=== PATIENT | male | born 1975 | race Hispanic/Latino ===

== ENCOUNTER 2018-01-09 15:50 | Emergency (ER) | payer OTHER ==
[2018-01-09] MEDS ORDERED: Lidocaine 2% 10 ML INJ ONE (17:42)
[2018-01-09 17:47] LABS: #Basophils 0.1 thou/uL (0.0-0.2); #Eosinphils 0.1 thou/uL (0.0-0.7); #Lymphocytes 1.7 thou/uL (1.20-3.40); #Monocytes 0.6 thou/uL (0.11-0.59); #Neutrophils 9.1 thou/uL (1.40-6.50); %Eosinophils 0.8 % (0.0-10.0); %Neutrophils 78.3 % (42.0-75.0); Hemoglobin 15.6 g/dL (14.0-18.0); Mean Corpuscular Hemoglobin 31.9 pg (27.0-31.0); Mean Corpuscular Volume 88.6 fL (78.0-98.0); Mean Platelet Volume 7.6 fL (7.4-10.4); Platelet Count 199 thou/uL (130-400); RBC Distribution Width 10.6 % (11.5-14.5); Red Blood Cell (RBC) Count 4.88 mill/uL (4.70-6.10); White Blood Cell (WBC) Count 11.6 thou/uL (4.8-10.8)
[2018-01-09] MEDS ORDERED: Bacitracin Zinc 1 Packet ONE (17:47)
[2018-01-09] MEDS ORDERED: Clindamycin/D5W 900 mg/50 ml Premix Bag ONE (17:56)
[2018-01-09 18:07] LABS: Anion Gap 16 mmol/L (10-20); BUN (Urea Nitrogen) 17 mg/dL (8.9-20.6); Calc. Creatinine Clearance 0 mL/min (70-130); Calcium 9.5 mg/dL (7.8-10.44); Carbon Dioxide 22 mmol/L (22-29); Chloride 104 mmol/L (98-107); Estimated GFR-MDRD Greater than 90; Glucose 365 mg/dL (70-105); Magnesium 2.1 mg/dL (1.6-2.6); Sodium 138 mmol/L (136-145)
[2018-01-09 19:00] LABS: Base Excess-Venous -1.5 mmol/L (0 (+/- 2.5)); Bicarbonate (HCO3v) 23.6 mmol/L (1.0-85.0); CO2 Tension (PvCO2) 39.7 mmHg (41.0-51.0); O2 Tension (PvO2) 50.3 mmHg (35.0-45.0); pH (Venous) 7.382 (7.35-7.45); vO2 Saturation-calc 84.6 % (94-98)
[2018-01-09 19:01] LABS: Calcium, Ionized 1.11 mmol/L (1.12-1.32); T. Carbon Dioxide 24.8 mmol/L (1.0-85.0)
== END 2018-01-09 20:00 | disposition home or self-care (01) ==
LOC: SCSER 15:50
DX: L02.612 Cutaneous abscess of left foot (principal); L03.116 Cellulitis of left lower limb; E11.65 Type 2 diabetes mellitus with hyperglycemia; Z79.84 Long term (current) use of oral hypoglycemic drugs; Z79.899 Other long term (current) drug therapy
CPT/HCPCS: 10060; 36416; 80048; 82010; 82330; 82803; 83735; 85025; 96361; 96365; 36415-59; J3490